=== PATIENT | female | born 1990 | race Caucasian/White ===

== ENCOUNTER 2016-10-24 16:12 | Emergency (ER) | payer OTHER ==
[~2016-10-24] VITALS: Ht 167.6 cm; Wt 139.4 kg
[~2016-10-24 16:12] MED LIST: CITA10TA8 PO; LEVO125T4 PO; PRENTAB26 PO
[2016-10-24 16:26] VITALS: TEMP 36.6; Ht 167.6 cm; Wt 139.4 kg
[2016-10-24] MEDS ORDERED: CITA20TA4 PO (16:39)
[2016-10-24] MEDS ORDERED: LEVO175T3 PO (16:39)
[2016-10-24] MEDS ORDERED: MULT-506 PO (16:39)
[2016-10-24 16:55] VITALS: BP 120/73; PULSE 92; O2SAT 99
--- NOTE | 2016-10-24 16:57 | EMERGENCY ROOM VISIT NOTE ---
History First contact with patient: 16:35 Chief Complaint: NEEDLE STICK Stated Complaint: EXPOSURE History of Present Illness The patient is a 25 year old female [employer] employee who presents to the Emergency Room for evaluation of a blood borne exposure. The patient reports that she was attempting to start an IV on a seizure patient when the patient pulled her arm back, the hub came out and sprayed blood all over the patient's left arm. The patient is concerned because she has a wound on her left upper arm. She immediately cleansed the area with a Clorox wipes, soap and water and repeat Clorox wipe. The patient did not notice any burning at the site. She denies any recent bleeding from the wound. The patient does not believe that there was actually any blood splashed on to the wound. She also believes that the exposure was less than 30 seconds to 1 minute. The exposure occurred approximately 1.5 hours ago. [place] Patient immunizations are up-to-date. She has undergone a hepatitis B immunization series. Review of Systems 6 system review was performed and was negative except for pertinent positives and negatives as indicated in history of present illness Past Medical/Surgical History Medical Problems: (1) Body Mass Index (Bmi) 45.0-49.9, Adult (2) Hypothyroidism, Unspecified (3) Major Depressive Disorder, Single Episode, Unspecified Family History Unremarkable Social History Smoking Status: Never Smoker Alcohol Use: none Marital Status: Housing Status: lives with family Occupation Status: employed Current/Historical Medications Scheduled Citalopram Hydrobromide (Citalopram Hydrobromide), 1 TAB PO DAILY Levothyroxine Sodium (Levothyroxine Sodium), 1 TAB PO DAILY Multivitamin (Multivitamin), 1 TAB PO DAILY Physical Exam Vital Signs Date Time Temp Pulse Resp B/P (MAP) Pulse Ox O2 Delivery O2 Flow Rate FiO2 10/24/16 16:26 36.6 92 16 120/73 99 Room Air Physical Exam CONSTITUTIONAL: Healthy and well nourished. Alert and oriented X 3 with positive affect. HEENT: Normocephalic, atraumatic. Pupils equal, round and reactive. NECK: Full active range of motion without discomfort. INTEGUMENTARY: Examination of the left upper arm shows a small skin lesion approximately 5 mm in diameter with a focal area of erythema. It appears like an old bleed. There is no other skin changes of concern of the upper arm or forearm. NEUROLOGIC: No focal neurologic deficits noted. Medical Decision & Procedures ED Course Patient history and physical exam were performed. Nurse's notes were reviewed. Vital signs were reviewed and were normal. Based on the fact that the patient cleansed the wound with Clorox and did not have any burning sensation, I do not feel that the wound is open. The patient also had minimal exposure to the blood. For this reason, I suggested no further laboratory workup or testing. She is welcome to follow-up with Employee Health as needed for any further concerns. The patient was happy with plan care, and voiced understanding of all discharge instructions. Medical Decision Medication Reconcilliation Current Medication List: was personally reviewed by me Blood Pressure Screening Patient's blood pressure: Normal blood pressure Impression Primary Impression: Exposure to bloodborne pathogen Additional Impression: Work related injury Departure Information Dispostion Home / Self-Care Forms HOME CARE DOCUMENTATION FORM, IMPORTANT VISIT INFORMATION Patient Instructions My [facility] Additional Instructions Your blood contact is considered nonsignificant for any significant bloodborne pathogen exposure. You may follow-up with Employee Health as needed for any further concerns. Problem Qualifiers
== END 2016-10-24 16:56 | disposition home or self-care (01) ==
LOC: C.EDB 16:14 → C.EDD 16:56
DX: Z77.21 Contact with and (suspected) exposure to potentially hazardous body fluids (principal); E03.9 Hypothyroidism, unspecified; F32.9 Major depressive disorder, single episode, unspecified; Z79.899 Other long term (current) drug therapy; Y99.0 Civilian activity done for income or pay

== ENCOUNTER → 2016-11-21 | Outpatient (CLI) | payer OTHER ==
[~2016-11-21] MED LIST changes: -CITA10TA8 PO; +CITA20TA4 PO; -LEVO125T4 PO; +LEVO175T3 PO; +MULT-506 PO; -PRENTAB26 PO
[2016-11-21 09:57] LABS: THYROID STIMULATING HORMONE 0.343 uIu/ml (0.300-4.500)
== END | disposition home or self-care (01) ==
LOC: C.LAB 07:07
PROVIDERS: ATTEND Physician Assistant
DX: E03.9 Hypothyroidism, unspecified (principal)

== ENCOUNTER → 2016-11-29 | Outpatient (CLI) | payer OTHER ==
[2016-11-29 11:32] LABS: URINE APPEARANCE CLEAR (CLEAR); URINE BILIRUBIN NEG (NEG); URINE COLOR DK YELLOW; URINE NITRITE NEG (NEG); UROBILINOGEN NEG (NEG)
[2016-11-29 11:36] LABS: MANUAL MICROSCOPIC REQUIRED? NO; REVIEW REQ? NO
== END | disposition home or self-care (01) ==
LOC: C.LABSPEC 10:57
PROVIDERS: ATTEND Obstetrics & Gynecology
DX: O99.281 Endocrine, nutritional and metabolic diseases complicating pregnancy, first trimester (principal); Z3A.00 Weeks of gestation of pregnancy not specified; E03.9 Hypothyroidism, unspecified

== ENCOUNTER → 2016-12-03 | Outpatient (CLI) | payer OTHER ==
[2016-12-03 14:34] LABS: BASO % 0.6 %; BASO ABS # 0.05 K/uL (0-0.2); COMPLETE YES; EOS % 1.6 %; HEMATOCRIT 39.1 % (37-47); IG% 0.1 %; LYMPH % 16.6 %; LYMPH ABS # 1.47 K/uL (1.2-3.4); MEAN CELL VOLUME 87.7 fL (80-100); MEAN CORPUSCULAR HEMOGLOBIN 28.5 pg (25-34); MEAN CORPUSCULAR HGB CONC 32.5 g/dl (32-36); MEAN PLATELET VOLUME 12.5 fL (7.4-10.4); MONO % 5.7 %; NEUT % 75.4 %; PLATELET COUNT 330 K/uL (130-400); RED BLOOD COUNT 4.46 M/uL (4.2-5.4); WHITE BLOOD COUNT 8.87 K/uL (4.8-10.8)
[2016-12-06 00:32] LABS: CHLAMYDIA TRACH RNA*** NOT DETECTED (NOT DETECTED); GC (NEIS GONORRHOEAE)RNA** NOT DETECTED (NOT DETECTED)
== END | disposition home or self-care (01) ==
LOC: C.LAB1850 12:54
PROVIDERS: ATTEND Obstetrics & Gynecology
DX: O99.281 Endocrine, nutritional and metabolic diseases complicating pregnancy, first trimester (principal)

== ENCOUNTER → 2017-01-23 | Outpatient (CLI) | payer OTHER ==
[2017-01-23 18:43] LABS: GTGD 50 Grams
== END | disposition home or self-care (01) ==
LOC: C.LAB1850 15:25
PROVIDERS: ATTEND Obstetrics & Gynecology
DX: Z34.82 Encounter for supervision of other normal pregnancy, second trimester (principal)

== ENCOUNTER 2017-04-05 10:46 | Emergency (ER) | payer OTHER ==
[~2017-04-05] VITALS: Ht 167.6 cm; Wt 132.4 kg
[2017-04-05 10:52] VITALS: BP 141/87; PULSE 100; TEMP 37; O2SAT 99; Ht 167.6 cm; Wt 132.4 kg
--- NOTE | 2017-04-05 11:18 | EMERGENCY ROOM VISIT NOTE ---
History First contact with patient: 11:03 Chief Complaint: FALL Stated Complaint: FELL ON RIGHT SIDE/ 27 WEEK History of Present Illness The patient is a 26 year old female who presents to the Emergency Room with complaints of a fall which occurred just prior to arrival. The patient is currently 27 weeks . The patient works as a nurse upstairs. She states that she was rounding a corner and her foot slipped, causing her to fall onto her right side. She reports very mild pain in her right side which she states feels like a pulled muscle. She rates the discomfort as 2/10. There has been no vaginal bleeding. She denies hitting her head or any other injuries. Review of Systems A complete 10 point review of systems was reviewed with the patient with pertinent positives and negatives as per history of present illness. All else were negative. Past Medical/Surgical History Medical Problems: (1) Body Mass Index (Bmi) 45.0-49.9, Adult (2) Hypothyroidism, Unspecified (3) Major Depressive Disorder, Single Episode, Unspecified Social History Smoking Status: Never Smoker Alcohol Use: none Marital Status: Housing Status: lives with family Occupation Status: employed Current/Historical Medications Scheduled Citalopram Hydrobromide (Citalopram Hydrobromide), 1 TAB PO DAILY Levothyroxine Sodium (Levothyroxine Sodium), 1 TAB PO DAILY Multivitamin (Multivitamin), 1 TAB PO DAILY Physical Exam Vital Signs Date Time Temp Pulse Resp B/P (MAP) Pulse Ox O2 Delivery O2 Flow Rate FiO2 04/05/17 10:52 37.0 100 20 141/87 99 Room Air Physical Exam VITALS: Vitals are noted on the nurse's note and reviewed by myself. Vital signs stable. GENERAL: This is a 26-year-old female, in no acute distress, nondiaphoretic, well-developed well-nourished. SKIN: No erythema, ecchymosis or edema. HEART: Regular rate and rhythm without murmurs gallops or rubs. LUNGS: Clear to auscultation bilaterally without wheezes, rales or rhonchi. ABDOMEN: Gravid appearance. Nontender to palpation. NEURO: Patient was alert and oriented to person place and time. Medical Decision & Procedures Medical Decision Differential diagnosis includes intra-abdominal injury, muscular injury, among others. The patient was evaluated as above. She sustained a ground-level fall. She has no tenderness on exam. There is no evidence of a significant intra- abdominal injury. I do feel the patient will require monitoring as she is in her third trimester . The charge account clerk contacted the labor and delivery floor. Dr. Gatica is there and agreed with sending the patient up to be monitored. The patient was discharged directly to labor and delivery. Patient's blood pressure was slightly elevated, however this is likely secondary to her recent fall and should be rechecked by her LEAD SOFTWARE ENGINEER. Medication Reconcilliation Current Medication List: was personally reviewed by me Blood Pressure Screening Patient's blood pressure: Elevated blood pressure Blood pressure disposition: Elevated BP felt to be situational Impression Primary Impression: Fall Departure Information Dispostion Home / Self-Care Condition GOOD Referrals An Hurtado D.O. (PCP) Patient Instructions My [facility] Additional Instructions Go directly to L&D for monitoring. Tylenol as needed for pain. Follow up with your PCP or LEAD SOFTWARE ENGINEER as needed. Problem Qualifiers Primary Impression: Fall Encounter type: initial encounter Qualified Codes: W19.XXXA - Unspecified fall, initial encounter
== END 2017-04-05 11:22 | disposition home or self-care (01) ==
LOC: C.EDB 10:48 → C.EDD 11:22
DX: O26.892 Other specified pregnancy related conditions, second trimester (principal); O99.282 Endocrine, nutritional and metabolic diseases complicating pregnancy, second trimester; E03.9 Hypothyroidism, unspecified; O99.342 Other mental disorders complicating pregnancy, second trimester; F32.9 Major depressive disorder, single episode, unspecified; Z79.899 Other long term (current) drug therapy; Z3A.27 27 weeks gestation of pregnancy; W01.0XXA Fall on same level from slipping, tripping and stumbling without subsequent striking against object, initial encounter; Y99.0 Civilian activity done for income or pay

== ENCOUNTER 2017-04-05 11:28 | Outpatient (CLI) | payer OTHER ==
[~2017-04-05] VITALS: Ht 165.1 cm; Wt 136.5 kg
[2017-04-05 11:47] VITALS: Ht 165.1 cm; Wt 136.5 kg
== END 2017-04-05 12:35 | disposition home or self-care (01) ==
LOC: C.OPB 11:28 → C.LD 11:30 → C.OPB 12:35
PROVIDERS: ATTEND Obstetrics & Gynecology
DX: O99.89 Other specified diseases and conditions complicating pregnancy, childbirth and the puerperium (principal); W19.XXXA Unspecified fall, initial encounter; Z3A.27 27 weeks gestation of pregnancy

== ENCOUNTER → 2017-04-09 | Outpatient (CLI) | payer OTHER ==
[2017-04-09 10:31] LABS: HEMATOCRIT 35.2 % (37-47); HEMOGLOBIN 11.7 g/dL (12.0-16.0)
== END ==
LOC: C.LAB1850 09:05
PROVIDERS: ATTEND Obstetrics & Gynecology
DX: Z34.83 Encounter for supervision of other normal pregnancy, third trimester (principal)

== ENCOUNTER → 2017-04-18 | Outpatient (CLI) | payer OTHER | END | disposition home or self-care (01) | LOC: C.LAB1850 07:13 | PROVIDERS: ATTEND Obstetrics & Gynecology | DX: O28.9 Unspecified abnormal findings on antenatal screening of mother (principal) ==

== ENCOUNTER 2017-06-14 22:47 | Outpatient (CLI) | payer OTHER ==
[~2017-06-14] VITALS: Ht 165.1 cm; Wt 140.0 kg
[2017-06-14 23:20] VITALS: Ht 165.1 cm; Wt 140.0 kg
== END 2017-06-14 23:36 | disposition home or self-care (01) ==
LOC: C.OPB 22:47 → C.LD 22:47 → C.OPB 23:36
PROVIDERS: ATTEND Obstetrics & Gynecology
DX: Z34.83 Encounter for supervision of other normal pregnancy, third trimester (principal); Z3A.37 37 weeks gestation of pregnancy

== ENCOUNTER 2017-06-29 11:04 | Inpatient (IN) | payer OTHER ==
[~2017-06-29] VITALS: Ht 167.6 cm; Wt 138.6 kg
[2017-06-29] MEDS ORDERED: CITA20TA9 PO (11:42)
[2017-06-29] MEDS ORDERED: PRENCAP38 PO (11:45)
[2017-06-29 11:47] VITALS: Ht 167.6 cm; Wt 138.6 kg
[2017-06-29] MEDS ORDERED: LACTATED RINGER'S 1000ML 1,000 ML IV PRN (13:31)
[2017-06-29] MEDS ORDERED: PENICILLIN G POTASSIUM IV 6 MU in DEXTROSE 5% 250ML 250 ML IV ONE (13:45)
[2017-06-29] MEDS ORDERED: PENICILLIN G POTASSIUM IV 3 MU in DEXTROSE 5% 100ML 100 ML IV PRN (13:45)
[2017-06-29] MEDS ORDERED: ONDANSETRON INJ 2 MG/ML 2 ML VIAL IV PRN (13:45)
[2017-06-29] MEDS ORDERED: LACTATED RINGER'S 1000ML 1,000 ML IV SCH (14:00)
[2017-06-29] MEDS ORDERED: OXYTOCIN 30 UNITS/500ML NSS IV ONE (14:17)
[2017-06-29] MEDS ORDERED: ACETAMINOPHEN 325 MG TAB PO PRN (14:30)
[2017-06-29] MEDS ORDERED: BENZOCAINE 20% AER SPR 82.5 GM CAN EXT PRN (14:30)
[2017-06-29] MEDS ORDERED: SUPERCREAM 0.870 % 15GM JAR EXT PRN (14:30)
[2017-06-29] MEDS ORDERED: LANOLIN OINT EXT PRN (14:30)
[2017-06-29] MEDS ORDERED: ACETAMINOPHEN/CODEINE 300/30MG TAB PO PRN ×2 (14:30)
[2017-06-29] MEDS ORDERED: DIPHTHERIA/TETANUS/PERTUSSIS 0.5 ML SYR/VIAL IM. ONE (14:30)
[2017-06-29] MEDS ORDERED: HYDROCORTISONE ACETATE 25 MG SUPP PR PRN (14:30)
[2017-06-29] MEDS ORDERED: OXYTOCIN 30 UNITS/500ML NSS IV PRN (14:30)
--- NOTE | 2017-06-29 14:51 | DELIVERY SUMMARY ---
DATE OF OPERATION: 06/29/2017 DATE OF DELIVERY: 06/29/2017 FINDINGS: Viable male infant with Apgars of 8 and 9. Baby was delivered spontaneously over a midline second-degree laceration. Nuchal cord x1 reduced on the perineum. Cord gases and cord blood samples were obtained. Placenta was delivered spontaneously. Laceration was repaired with 4-0 Vicryl in routine fashion. Estimated blood loss was 300 mL. LABOR NOTE: The patient is a 26-year-old 2, para 1 with an EDC of 07/05/2017 by dates and first trimester ultrasound who was admitted in active labor. The patient was observed on labor and delivery, had cervical change, and was admitted. The patient had a benign course. Blood type A positive, antibody negative, rubella immune, hepatitis B negative. She had normal 1 hour Glucola at 16 weeks, elevated to 28 with a normal 2-hour glucose tolerance test. She declined any genetic testing and had positive GBS bacteria. On admission, her cervix was 5 cm dilated. Anesthesia was consulted for an epidural. Penicillin was ordered and labs were ordered. At that point, the patient began to make rapid progress and went from 5 cm to fully dilated in the next 15 minutes. The patient had an uncontrolled urge to push with the membranes intact and fully dilated. She had artificial ruptures of membranes of clear fluid. The patient then delivered over the next 10 minutes delivering a viable male . Nuchal cord x1 was reduced on the perineum. Cord was clamped and cut. Cord gases and cord blood samples were obtained. Placenta was delivered spontaneously. Inspection of the perineum showed a small midline second-degree laceration, this was repaired with 4-0 Vicryl in routine fashion. Estimated blood loss was 300 mL. Sponge and needle count was correct. I attest to the content of the Intraoperative Record and any orders documented therein. Any exception s are noted below.
[2017-06-29 17:00] VITALS: BP 116/71; PULSE 105; TEMP 36.7
[2017-06-29] MEDS: IBUPROFEN 600 MG TAB PO PRN (17:45)
[2017-06-29] MEDS: DOCUSATE SODIUM 100 MG CAP PO SCH (19:30)
[2017-06-29 20:00] VITALS: BP 108/73; PULSE 76; TEMP 36.8
[2017-06-29 23:35] VITALS: BP 109/73; PULSE 76; TEMP 36.8; O2SAT 99
[2017-06-30 03:15] VITALS: BP 109/74; PULSE 83; TEMP 36.6; O2SAT 98
--- NOTE | 2017-06-30 06:31 | Progress Note ---
Subjective June 30, 2017. Subjective conversation w/ patient Ambulation: ambulating normally Voiding: no voiding problems Diet Tolerance: Regular Diet Lochia: Moderate Feeding Type: Breast Feeding Pain: Minimal pain reported, improved with analgesia Review of Systems Constitutional: No fever, No chills Respiratory: No shortness of breath Cardiac: No chest pain Abdomen: No nausea, No vomiting Objective Vital Signs Date Time Temp Pulse Resp B/P (MAP) Pulse Ox O2 Delivery O2 Flow Rate FiO2 06/30/17 03:15 36.6 83 18 109/74 (86) 98 Room Air 06/29/17 23:35 99 Room Air 06/29/17 23:35 36.8 76 18 109/73 (85) 99 Room Air 06/29/17 20:00 36.8 76 18 108/73 (85) Room Air 06/29/17 17:00 36.7 105 18 116/71 (86) Room Air 06/29/17 17:00 Room Air Physical Exam General Appearance: WELL-APPEARING, WD/WN, NO APPARENT DISTRESS Respiratory/Chest: lungs clear, normal breath sounds Cardiovascular: regular rate, rhythm Abdomen: soft Fundus: Firm, Non-Tender, Relation to Umbilicus (at u) Extremities: no pedal edema, no calf tenderness Laboratory Results Last 24 Hours Test 06/30/17 06:24 Medications Current Inpatient Medications Medications (Trade) Dose Ordered Sig/Kristin Route Start Time Stop Time Status Last Admin Dose Admin Penicillin G Potassium 3 mu/ Dextrose 106 ml @ 100 mls/hr Q4H PRN IV 06/29/17 13:45 07/01/17 13:44 Lactated Ringer's 1,000 ml @ 125 mls/hr Q8H IV 06/29/17 14:00 07/01/17 13:59 Ondansetron HCl (Zofran Inj) 4 mg Q4H PRN IV 06/29/17 13:45 07/29/17 13:44 Oxytocin (Pitocin IV) 30 units UD PRN IV 06/29/17 14:30 07/29/17 14:29 Benzocaine (Dermoplast Aero Spr) 1 appln PRN PRN EXT 06/29/17 14:30 07/29/17 14:29 06/29/17 17:44 1 APPLN Cocaine HCl (Supercream 0.870% Cr) BID PRN EXT 06/29/17 14:30 07/13/17 14:29 Hydrocortisone Acetate (Anusol Hc Supp) 25 mg BID PRN OH 06/29/17 14:30 07/29/17 14:29 Lanolin (Lanolin Oint) PRN PRN EXT 06/29/17 14:30 07/29/17 14:29 Prenat Multivit/ Roofing Tile Sorter/Iron/Folic Ac ( Vitamin Tab) 1 tab DAILY PO 06/30/17 08:00 07/30/17 07:59 Ibuprofen (Motrin Tab) 600 mg Q4H PRN PO 06/29/17 14:30 07/29/17 14:29 06/29/17 17:45 600 MG Acetaminophen (Tylenol Tab) 650 mg Q6H PRN PO 06/29/17 14:30 07/29/17 14:29 Acetaminophen/ Codeine Phosphate (Tylenol w/ Codeine #3 Tab) 1 tab Q4H PRN PO 06/29/17 14:30 07/29/17 14:29 Acetaminophen/ Codeine Phosphate (Tylenol w/ Codeine #3 Tab) 2 tab Q4H PRN PO 06/29/17 14:30 07/29/17 14:29 Bisacodyl (Dulcolax Tab) 5 mg 20 PO 06/30/17 20:00 06/30/17 20:01 Docusate Sodium (coLACE CAP) 100 mg BID PO 06/29/17 20:00 07/29/17 19:59 06/29/17 19:30 100 MG Ferrous Sulfate (Feosol Tab) 325 mg DAILY PO 06/30/17 08:00 07/30/17 07:59 Citalopram Hydrobromide (celeXA TAB) 20 mg DAILY PO 06/30/17 08:00 07/30/17 07:59 Levothyroxine Sodium (Synthroid Tab) 175 mcg DAILY PO 06/30/17 08:00 07/30/17 07:59 Assessment and Plan Problem List Medical Problems: (1) Employee exposure to body fluids Status: Acute (2) Exposure to bloodborne pathogen Status: Acute (3) Fall Status: Acute (4) Work related injury Status: Acute Post- Day#: 1 Continue Routine Care: 26F s/p NVD with second degree laceration day 1 - A+, Rubella Immune, GBS +ve - pt doing well clinically - Vital signs reviewed and WNL - Encourage ambulation, monitor and control pain with Motrin PRN - Encourage breast feeding Resident Physician Supervision Note: I interviewed and examined the patient. Discussed with Dr. Samano and agree with findings and plan as documented in the note. Any exceptions or clarifications are listed here: Discussed delivery and care. Documented By: Jadon Gatica Resident Tracking Resident Involvement: Resident Care Provided Care Provided: OB Delivery
[2017-06-30 06:36] LABS: HEMATOCRIT 32.9 % (37-47); HEMOGLOBIN 10.8 g/dL (12.0-16.0)
--- NOTE | 2017-06-30 06:59 | Discharge Instructions ---
Discharge Instructions Date of Service June 30, 2017. Admission Reason for Admission: Check Labor Discharge Discharge Diagnosis / Problem: Vaginal Delivery Discharge Goals Goal(s): Routine recovery after delivery Medications Continue Dispensed Medications: supercream, dermaplast, tucks, lansinoh Activity Recommendations Activity Limitations: per Instructions/Follow-up section . Instructions / Follow-Up Instructions / Follow-Up ACTIVITY RECOMMENDATIONS: * Gradual return to full activity over the next 2-3 weeks. * No lifting - nothing heavier than baby over the next 2-3 weeks. * Do not engage in vigorous exercise, sexual activity or sports until cleared by your physician. * Do not drive or operate any motorized equipment until cleared by your physician. * You may shower/bathe daily. MEDICATIONS: For discomfort or pain, you may use Acetaminophen (Tylenol), Ibuprofen (Advil), or Naproxen (Aleve) following the package directions. For constipation you may use Colace following the package directions. BREAST CARE: If you are not breast feeding: * Wear a supportive bra 24 hours a day for one to two weeks. * Avoid stimulating your breasts and nipples as much as possible during the first few weeks after delivery. * When taking a shower, have the warm water hit your back, not breasts. * When your breasts feel full, apply ice packs. Usually three to four times a day helps ease the discomfort. * Take a mild pain medication (Tylenol / Motrin) when you are uncomfortable. If breast feeding: * Use breast milk to lubricate nipples. Lansinoh cream may be used for sore nipples. You do not need to remove cream prior to breast feeding. If using a different brand of cream, check the label for directions regarding removal of cream prior to nursing. * Wear a supportive bra. * If having problems with breasts or breast feeding, call a learning consultant or your health care provider. EPISIOTOMY CARE: After delivery, if you have an episiotomy (stitches), the following steps will ease discomfort and aid healing. * For the first 24 hours after delivery, place ice packs next to your episiotomy to help reduce swelling. * After the first 24 hour-period, sitz baths, either portable or in the tub, are suggested. A shower with a shower arm sprayed over the episiotomy may be comforting. * Alyssa care should be done after each voiding and bowel movement. Squirt warm water from a plastic bottle over the perineum (region of the body between the anus and urinary opening) and pat dry. * Use Dermoplast to ease discomfort. Shake container. [place] directly over the episiotomy. Place a Tucks on a clean sanitary pad next to your episiotomy. SPECIAL CARE INSTRUCTIONS: When you are discharged from the hospital, it is important for you to follow the instructions listed below: * During the first week at home, you should be able to care for yourself and your baby. In addition, the usual light household activities are encouraged. * Limit your activities to the way you feel. Do not try to clean the house or move furniture. Be sensible. * If you actively engage in sports and have done so up until the time of your delivery, you may resume these activities as soon as you feel able. This may take up to one month or even longer. Use good judgment. * Continue to take your vitamins for at least six weeks after the of your baby. * Your diet need not be limited unless you were on a special diet before your delivery. Breast-feeding mothers need around 2500 calories per day and at least 64-80 ounces of fluid per day (8 to 10 glasses). * You should eat foods from the four major food groups. Crash diets or fad diets are to be avoided. Eating lean meats, fresh fruits and vegetables, low-fat dairy products, high fiber foods and a regular exercise program, will help you get back to your pre- weight without putting your health at risk. * Constipation is sometimes a problem after delivery. Take a mild laxative as needed. If breast feeding, Milk of Magnesia is acceptable to use. You may use a suppository or Fleets enema if no episiotomy. * A daily shower or tub bath is suggested. Be sure to thoroughly and gently dry the perineum. * A bloody vaginal discharge will usually continue until around four weeks post . A small amount of bleeding may continue for as long as six weeks. Vaginal discharge changes from the bright red bleeding after delivery to pink then brownish and finally yellowish-pink before becoming white and disappearing. * Bleeding may increase with activity. Your first period may come in 4-8 weeks. If you are breast feeding, your period may be delayed even longer. * Foyil (sex) can begin whenever both you and your partner feel comfortable and do not have any form of genital infection. It is recommended that you wait at least six weeks for internal and external healing to occur. If you have questions, please talk to your health care practitioner. A condom should be used to prevent infection and . * Foreplay, gentle intercourse and lubrication is very important the first several times to prevent pain. A water-based lubricant such as K-Y jelly or Astroglide may be used. * If you have RH negative blood and your baby is RH positive, you will receive RHOGAM by injection prior to discharge. The nurse will give you a card to keep with you that has the date and place that you received RHOGAM after delivery. * During your care, you had a Rubella screen done to check for the presence of rubella antibodies in your blood. If your test was negative, you will receive a Rubella vaccine prior to discharge. This vaccine may cause a fever, soreness at the injection site and flu-like symptoms. If these symptoms persist, notify your health care practitioner. is not advised for one month after a Rubella vaccine. * Verbalizes understanding of car seat law as reviewed with patient nursing. * Car Seat hand-out given and reviewed with patient by nursing. * Shaken baby information reviewed with patient by nursing. Call you doctor if: * Heavy bleeding (saturating several pads an hour) or passing clots the size of your fist. * A fever >101 degrees F (38.3 degrees C) on two occasions four hours apart and /or chills. * Unusual pain in the pelvic or vaginal areas. * "Baby Blues" lasting longer than two weeks. If you have any questions or concerns, call your health care practitioner at . FOLLOW UP VISIT: * Please call the office at to schedule a 6 week examination. It is important you keep this appointment. It is important for you to make arrangements for either yearly or twice yearly check-ups thereafter. Current Hospital Diet Patient's current hospital diet: Regular OB Diet Discharge Diet Recommended Diet: Regular Diet Pending Studies Studies pending at discharge: no Medical Emergencies . Who to Call and When: Medical Emergencies: If at any time you feel your situation is an emergency, please call 911 immediately. . Non-Emergent Contact Non-Emergency issues call your: Primary Care Provider . . "Provider Documentation" section prepared by Aimee Samano. .
[2017-06-30] MEDS: DOCUSATE SODIUM 100 MG CAP PO SCH ×2 (08:37→20:03)
[2017-06-30] MEDS: CITALOPRAM 20 MG TAB PO SCH (08:37)
[2017-06-30] MEDS: LEVOTHYROXINE 175 MCG TAB PO SCH (08:37)
[2017-06-30] MEDS: PRENATAL VITAMIN TAB PO SCH (08:37)
[2017-06-30] MEDS: FERROUS SULFATE 325 MG TAB PO SCH (08:37)
[2017-06-30] MEDS: IBUPROFEN 600 MG TAB PO PRN (08:38)
[2017-06-30 08:55] VITALS: BP 123/84; PULSE 88; TEMP 36.7; O2SAT 98
[2017-06-30 12:30] VITALS: BP 112/75; PULSE 86; TEMP 36.7
[2017-06-30 16:10] VITALS: BP 121/77; PULSE 78; TEMP 36.8
[2017-06-30] MEDS ORDERED: BISACODYL 5 MG TABEC PO SCH (20:00)
[2017-06-30 23:45] VITALS: BP 126/85; PULSE 84; TEMP 36.8
--- NOTE | 2017-07-01 06:02 | Progress Note ---
Subjective July 01, 2017. Subjective conversation w/ patient Ambulation: ambulating normally Voiding: no voiding problems Diet Tolerance: Regular Diet Lochia: Small Feeding Type: Breast Feeding Pain: No pain reported Review of Systems Constitutional: No fever, No chills Respiratory: No shortness of breath Cardiac: No chest pain Abdomen: No nausea, No vomiting Objective Vital Signs Date Time Temp Pulse Resp B/P (MAP) Pulse Ox O2 Delivery O2 Flow Rate FiO2 06/30/17 23:45 36.8 84 16 126/85 (99) Room Air 06/30/17 23:45 Room Air 06/30/17 16:10 36.8 78 16 121/77 (92) Room Air 06/30/17 16:10 Room Air 06/30/17 12:30 36.7 86 14 112/75 (87) Room Air 06/30/17 08:55 98 Room Air 06/30/17 08:55 36.7 88 12 123/84 (97) 98 Room Air Physical Exam General Appearance: WELL-APPEARING, WD/WN, NO APPARENT DISTRESS Respiratory/Chest: lungs clear, normal breath sounds Cardiovascular: regular rate, rhythm Abdomen: soft Fundus: Firm, Non-Tender, Relation to Umbilicus (2 below u) Extremities: no pedal edema, no calf tenderness Laboratory Results Last 24 Hours Test 06/30/17 06:24 Hemoglobin 10.8 g/dL Hematocrit 32.9 % Assessment and Plan Problem List Medical Problems: (1) Employee exposure to body fluids Status: Acute (2) Exposure to bloodborne pathogen Status: Acute (3) Fall Status: Acute (4) Work related injury Status: Acute Post- Day#: 2 Continue Routine Care: 26F s/p NVD with second degree laceration day 2 - A+, Rubella Immune, GBS +ve - pt doing well clinically - Vital signs reviewed and WNL - Hgb 10.8 - Encourage ambulation and breast feeding - pt ready for d/c today - will review d/c instructions Resident Physician Supervision Note: I interviewed and examined the patient. Discussed with Dr. Samano and agree with findings and plan as documented in the note. Any exceptions or clarifications are listed here: [None] Documented By: Pily Pineda Resident Tracking Resident Involvement: Resident Care Provided Care Provided: OB Delivery
[2017-07-01] MEDS: LEVOTHYROXINE 175 MCG TAB PO SCH (07:22)
[2017-07-01 08:00] VITALS: BP 116/69; PULSE 80; TEMP 36.7
[2017-07-01] MEDS: CITALOPRAM 20 MG TAB PO SCH (08:06)
[2017-07-01] MEDS: FERROUS SULFATE 325 MG TAB PO SCH (08:06)
[2017-07-01] MEDS: PRENATAL VITAMIN TAB PO SCH (08:06)
[2017-07-01] MEDS: DOCUSATE SODIUM 100 MG CAP PO SCH (08:06)
[2017-07-01] MEDS: IBUPROFEN 600 MG TAB PO PRN (12:46)
[2017-07-01 13:40] VITALS: BP_DIAS 69; PULSE 80; TEMP 36.7
== END 2017-07-01 14:27 | disposition home or self-care (01) | DRG 775 ==
LOC: C.OPB 11:04 → C.LD 11:06 → C.OPB 13:33 → C.LD 13:33 → C.OBG 17:01
PROVIDERS: ADMIT Obstetrics & Gynecology; ATTEND Obstetrics & Gynecology
PROC: 0KQM0ZZ Repair Perineum Muscle, Open Approach (ICD-10-PCS; principal; 2017-06-29)
PROC: 10E0XZZ Delivery of Products of Conception, External Approach (ICD-10-PCS; principal; 2017-06-29)
DX: O70.1 Second degree perineal laceration during delivery (principal); Z37.0 Single live birth; O99.284 Endocrine, nutritional and metabolic diseases complicating childbirth; O99.824 Streptococcus B carrier state complicating childbirth; O69.81X0 Labor and delivery complicated by cord around neck, without compression, not applicable or unspecified; Z3A.39 39 weeks gestation of pregnancy; E03.9 Hypothyroidism, unspecified